=== PATIENT | female | born 1975 | race African-American/Black ===

== ENCOUNTER 2018-05-24 10:48 | Inpatient (IN) | payer BC ==
[~2018-05-24] VITALS: Ht 177.8 cm; Wt 72.6 kg
[2018-05-24 11:06] VITALS: BP 134/76
--- NOTE | 2018-05-24 11:07 | NUR ---
ED Nurse Note: Pt BIBA from home due to R sided abdominal pain radiating to back pain since Fibroid Embolization Procedure yesterday by Dr. Pedraza, also c/o n/v not relieved by Zofran. Emesis was saliva and fluid. Pain 7/10 yfn. Last bowel movement was Tuesday05/22/18. AOx4, Vss yfn. Will cont to monitor. Blood and urine collected and sent to lab.
[2018-05-24 11:15] LABS: APPEARANCE,URINE CLEAR; BASOPHILS % (AUTO) 0.8 % (0.0-2.0); BILIRUBIN, URINE NEGATIVE (NEGATIVE); GLUCOSE, URINE (UA) NEGATIVE (NEGATIVE); HEMATOCRIT 42.7 % (37.0-47.0); HEMOGLOBIN 14.4 G/DL (12.0-16.0); KETONES,URINE 3+ (NEGATIVE); LEUKOCYTE ESTERASE ,URINE 1+ (NEGATIVE); LYMPHOCYTES % (AUTO) 17.5 % (20.0-45.0); MEAN CORPUSCULAR VOLUME 95 FL (80-99); MONOCYTES % (AUTO) 4.5 % (1.0-10.0); NEUTROPHILS % (AUTO) 77.1 % (45.0-75.0); NITRITE,URINE NEGATIVE (NEGATIVE); PH,URINE 6.5 (4.5-8.0); PLATELET COUNT 311 K/UL (150-450); PROTEIN,URINE 1+ (NEGATIVE); RED BLOOD COUNT 4.49 M/UL (4.20-5.40); RED CELL DISTRIBUTION WIDTH 11.1 % (11.6-14.8); UROBILINOGEN,URINE NORMAL MG/DL (0.0-1.0); WHITE BLOOD COUNT 8.5 K/UL (4.8-10.8)
[2018-05-24] MEDS ORDERED: Isovue-300 100ml vial INJ PRN (11:15)
[2018-05-24 11:18] LABS: COLOR,URINE YELLOW
--- NOTE | 2018-05-24 11:21 | NUR ---
ED Nurse Note: Blood and urine collected and sent to lab
[2018-05-24 11:24] LABS: ANION GAP 10 mmol/L (5-15); BLOOD UREA NITROGEN 7 mg/dL (7-18); CARBON DIOXIDE 25 MMOL/L (21-32); CHLORIDE 99 MMOL/L (98-107); POTASSIUM 3.7 MMOL/L (3.5-5.1); SODIUM 134 MMOL/L (136-145)
--- NOTE | 2018-05-24 11:24 | Emergency Room Report ---
History of Present Illness General Chief Complaint: Abdominal Pain Source: Patient Present Illness HPI 43yo F c/o diffuse constant crampy nonradiating abd pain s/p UAE procedure with Dr. Godfrey Pedraza yesterday, pain became worse when she was climbing stairs yesterday but denies feeling any sutures pop, denies diarrhea, constipation, vomiting, vaginal bleeding. She Reports nausea, but no shortness of breath, no chest pain, no fever, does report mild back pain as well, denies any urinary retention, but does report constipation, and has been trying Percocet without much relief. Allergies: Coded Allergies: No Known Allergies (Unverified , 05/24/18) Patient History Past Medical History: see triage record Last Menstrual Period: last month Now: No Reviewed Nursing Documentation: PMH: Agreed; PSxH: Agreed Nursing Documentation-PMH Past Medical History: No History, Except For Hx Asthma: Yes Review of Systems All Other Systems: negative except mentioned in HPI Physical Exam Vital Signs Date Time Temp Pulse Resp B/P (MAP) Pulse Ox O2 Delivery O2 Flow Rate FiO2 05/24/18 10:42 99.1 64 18 126/84 99 Room Air Sp02 EP Interpretation: reviewed, normal General Appearance: no apparent distress, alert, non-toxic Head: normocephalic Eyes: bilateral eye normal inspection, bilateral eye PERRL, bilateral eye EOMI ENT: normal ENT inspection, hearing grossly normal, normal pharynx, no angioedema, normal voice, moist mucus membranes Neck: normal inspection, full range of motion, supple, supple/symm/no masses Respiratory: chest non-tender, lungs clear, normal breath sounds, chest symmetrical, palpation of chest normal Cardiovascular #1: normal peripheral pulses, regular rate, rhythm Cardiovascular #2: 2+ radial (R), 2+ radial (L), 2+ dorsalis pedis (R), 2+ dorsalis pedis (L) Gastrointestinal: normal inspection, non tender - mild diffuse subjective pain but no focal tenderness, soft, no mass, no guarding, no rebound Rectal: deferred Genitourinary: normal inspection, no CVA tenderness Musculoskeletal: back normal, gait/station normal, normal range of motion, non- tender, no calf tenderness, Sergio's Sign negative Neurologic: alert, responsive, computer operations specialist III-XII nml as tested, motor strength/tone normal, sensory intact, speech normal Psychiatric: judgement/insight normal, memory normal, mood/affect normal, anxious Skin: normal color, no rash, warm/dry, normal turgor, other - R inguinal sutures C/D/I no overlying erythema/warmth/tenderness/bleeding/purulence/ fluctuance Lymphatic: no adenopathy Medical Decision Making Diagnostic Impression: Primary Impression: Postoperative abdominal pain ER Course Patient is postop day 1 status post uterine artery embolization for fibroids, will be admitted to Dr. Godfrey Pedraza, stable for MedSurg, given IV fluids, analgesics, antiemetics here. Labs, CT, UA, unremarkable, will admit to Dr. Pedraza. EKG Diagnostic Results EKG Time: 10:53 EP Interpretation: no stemi, no [id number] Rate: normal ST Segments: no acute changes ASA given to the pt in ED: No Rhythm Strip Diag. Results Rhythm Strip Time: 11:22 EP Interpretation: yes Rate: 67 Rhythm: NSR, no PVC's, no ectopy CT/MRI/US Diagnostic Results CT/MRI/US Diagnostic Results : Imaging Test Ordered: ct angio chest/abd/pelvis Last Vital Signs Date Time Temp Pulse Resp B/P (MAP) Pulse Ox O2 Delivery O2 Flow Rate FiO2 05/24/18 11:06 99.1 70 18 134/76 100 Room Air Disposition: ADMITTED INPATIENT Condition: Stable Referrals: NON PHYSICIAN (PCP) DIYA MOREAU M.D May 24, 2018 11:23
[2018-05-24 11:28] VITALS: BP 122/67
[2018-05-24 11:32] LABS: ALANINE AMINOTRANSFERASE 19 U/L (12-78); ALBUMIN 3.8 G/DL (3.4-5.0); ALBUMIN/GLOBULIN RATIO 0.8 (1.0-2.7); ALKALINE PHOSPHATASE 47 U/L (46-116); ASPARTATE AMINO TRANSFERASE 14 U/L (15-37); BILIRUBIN,TOTAL 0.6 MG/DL (0.2-1.0)
[2018-05-24] MEDS ORDERED: Morphine Sulfate 4mg/ml Inj (IV USE ONLY) IVP ONE (11:45)
--- NOTE | 2018-05-24 11:47 | NUR ---
ED Nurse Note: let ralph rn know about hcg result
--- NOTE | 2018-05-24 12:35 | Diagnostic Imaging Report ---
Indication: Chest and abdominal pain. Status post UAE procedure Technique: Continuous helical transaxial imaging of the chest, abdomen and pelvis was obtained from the lung bases to the pubic symphysis during intravenous contrast administration. Multiple phases of enhancement obtained. Coronal 2-D reformats were also obtained. Study obtained in a Siemens sensation [address] Automatic Exposure Control was utilized. Total Dose length Product (DLP): 1256.[address] Dose Index Volume (CTDIvol): 11.18,14.25 mGy Comparison: None Findings: CT CHEST: The lungs are clear. Heart and mediastinum appear unremarkable. No pleural or pericardial fluid identified. No infiltrate seen. CT abdomen pelvis: Signs of a recent uterine fibroid embolization are demonstrated. There are 2 large areas noted. In the anterior part of the uterine fundus there is a 6 cm focus with heterogeneous contrast enhancement and curvilinear areas of air. 5 cm posterior uterine fibroid with similar findings. There is no free air. There is no evidence of intra-abdominal pelvic abscess. The appendix is retrocecal and appears normal. No evidence of bowel dilatation to suggest bowel obstruction. The kidneys enhance normally. There is no hydronephrosis. There is vicarious excretion of contrast noted within the gallbladder. Solid organs including the liver, spleen, pancreas, adrenal glands appear normal. Some air noted in the urinary bladder presumably from recent Reeder placement. IMPRESSION: Stigmata of recent uterine fibroid embolization as described above. No evidence of abscess or perforation. Some air in the urinary bladder presumably from recent Reeder placement. Negative evaluation of the chest The CT scanner at [facility] is accredited by the [employer] and the scans are performed using dose optimization techniques as appropriate to a performed exam including Automatic Exposure control.
[2018-05-24 14:03] VITALS: BP 133/80
--- NOTE | 2018-05-24 15:24 | NUR ---
ED Nurse Note: pt is admitted to the hospital report given to afua lehman.
[2018-05-24] MEDS ORDERED: OXYCODONE-ACET1 EAC3 ORAL (15:30)
[2018-05-24] MEDS ORDERED: TRAMADOL HCL50 MG ORAL (15:30)
[2018-05-24] MEDS ORDERED: AMOX TR-K CLV1 EAC2 ORAL (15:30)
[2018-05-24] MEDS ORDERED: IBUPROFEN600 MG ORAL (15:30)
[2018-05-24] MEDS ORDERED: ZOFRAN4 M3 ORAL (15:30)
[2018-05-24 16:00] VITALS: BP 135/87
[2018-05-24] MEDS ORDERED: HYDROmorphone 1mg/ml Carpuject IVP PRN (16:00)
--- NOTE | 2018-05-24 16:30 | NUR ---
NURSE NOTES: Received patient From ER stable condition, reporting pain 5/10. reported NKA, Call light with in reach bed at low position locked, mother at bedside will continue to monitor.
--- NOTE | 2018-05-24 17:27 | Consultation ---
Consult Note Assessment/Plan dictated Mike Astorga MD May 24, 2018 17:27
[2018-05-24] MEDS ORDERED: Hydromorphone 0.5mg/0.5ml inj IVP PRN (17:30)
[2018-05-24] MEDS ORDERED: Albuterol ud Inhalation HHN PRN (17:30)
[2018-05-24] MEDS ORDERED: Potassium Chloride 20 MEQ in Dextrose 5%/Lactated Ringer's 1,000 ML IV SCH (18:00)
--- NOTE | 2018-05-24 18:00 | NUR ---
NURSE NOTES: Patient had clear liquid diet and able to eat and tolerated no nausea/vomiting reported. Patient also stated she takes control pills but she doesn't remember the name of the medication so her mother will send the information when she go home tonight will endorse to package crimper nurse. SCD on IV running. Pain managed well with one time dose 1mg dilaudid. will continue to monitor. no bleeding noted or reported.
[2018-05-24] MEDS: Potassium Chloride 20 MEQ in Dextrose 5%/Lactated Ringer's 1,000 ML IV SCH (18:45)
--- NOTE | 2018-05-24 19:29 | NUR ---
HAND-OFF: Report given to Bunny Stark RN patient stable condition.
[2018-05-24 20:00] VITALS: BP 114/82
[2018-05-24] MEDS: ceFAZolin sod 1 GM in D5W 55 ML IVPB SCH (22:16)
--- NOTE | 2018-05-24 23:00 | Consultation ---
DATE OF CONSULTATION: 05/24/2018 INTERNAL MEDICINE CONSULTATION HISTORY OF PRESENT ILLNESS: The patient is a 43-year-old female who had problems with fibroid uterus and underwent uterine artery embolization yesterday. Since that time, she has had severe pain, nausea, and vomiting. She was admitted for control of her symptoms. She states that she is feeling better now that she had some intravenous narcotics. PAST MEDICAL HISTORY: The patient had sinus surgery many years ago and has mild asthma, which is not active at the present time. She has no other major health problems. MEDICATIONS: At home, she was taking Augmentin, ibuprofen, Zofran, Percocet, and tramadol. She is on control pills. ALLERGIES: None. SOCIAL HISTORY: She does not smoke. She drinks socially. She does not use drugs. REVIEW OF SYSTEMS: Otherwise unremarkable. She has not had a bowel movement since her procedure yesterday. PHYSICAL EXAMINATION: GENERAL: The patient is alert and responds appropriately. VITAL SIGNS: Stable. Temperature is 99.1, heart rate is 78, and saturation are normal. SKIN: Warm and dry. HEENT: The head is normocephalic. NECK: No jugular venous distention. CHEST: Clear. CARDIAC: Rhythm is regular. ABDOMEN: Soft and nontender. No masses felt. Liver and spleen are not enlarged. EXTREMITIES: No clubbing, cyanosis, or edema. LABORATORY AND DIAGNOSTIC DATA: The electrolytes are normal except for sodium 134. Protein is slightly high at 8.6. Lipase is low. HCG is negative. Urinalysis shows few red cells, ketones, and blood on dipstick. The white count and hemoglobin are normal. Platelets are normal. IMPRESSION: 1. Leiomyoma of the uterus. 2. Status post uterine artery embolization. 3. Postprocedure severe pain and vomiting. 4. Mild asthma. PLAN: The patient will be given appropriate pain medication, intravenous fluids, and antiemetics. Early discharge is anticipated. Don Astorga M.D. DR: ROHIT JOB#: [id number] CC: Godfrey Pedraza M.D.; Fax#: [phone] DON ASTORGA M.D. ; FAX#: [phone]
--- NOTE | 2018-05-24 23:58 | NUR ---
NURSE NOTES: Patient in bed awake and oriented. VSS. No SOB noted. IV site intact and able to tolerate IV fluids. 7/10 Lower abdominal pain noted. PRN pain medication given. No signs of distress noted at this time. Needs attended. Due meds given. Call light within reach. In stable condition.
[2018-05-25] VITALS (7 sets, daily range): BP systolic 112–138; BP diastolic 69–84
[2018-05-25] MEDS: HYDROcodone/Acetamin 10/325 tab ORAL PRN ×5 (01:00→19:47)
[2018-05-25] MEDS: Potassium Chloride 20 MEQ in Dextrose 5%/Lactated Ringer's 1,000 ML IV SCH ×4 (01:38→20:28)
[2018-05-25] MEDS: ceFAZolin sod 1 GM in D5W 55 ML IVPB SCH ×2 (06:01→14:52)
--- NOTE | 2018-05-25 06:25 | General Surgery Progress Note ---
General Surgery-Progress Note Subjective Day of Surgery: 05 23 18 Reason for Consult uncontrolled pain, nausea Procedure Performed uterine artery embolization Symptoms: improved, tolerating diet, voiding well Objective Last 24 Hour Vital Signs Date Time Temp Pulse Resp B/P (MAP) Pulse Ox O2 Delivery O2 Flow Rate FiO2 05/25/18 04:00 98.3 70 18 124/79 (94) 97 05/25/18 00:00 98.2 66 18 114/82 (93) 99 05/24/18 21:00 Room Air 05/24/18 20:45 62 18 Room Air 05/24/18 20:00 98.4 69 18 114/82 (93) 99 05/24/18 17:06 99.1 05/24/18 16:00 97.9 63 18 135/87 (103) 98 05/24/18 16:00 Room Air 05/24/18 15:30 99.1 78 20 133/80 99 Room Air 05/24/18 14:03 78 20 133/80 99 Room Air 05/24/18 12:17 99.1 05/24/18 11:28 64 12 122/67 100 Room Air 05/24/18 11:06 99.1 70 18 134/76 100 Room Air 05/24/18 10:57 64 18 Room Air 05/24/18 10:42 99.1 64 18 126/84 99 Room Air I&O Intake and Output 05/24/18 05/25/18 19:00 07:00 Intake Total 1100 ml 1850 ml Balance 1100 ml 1850 ml Intake Oral 500 ml IV Total 1100 ml 1350 ml # Voids 1 4 Dressing: dry Wound: clean, dry Drains: none Cardiovascular: RSR Respiratory: clear Abdomen: soft, flat, scaphoid, tenderness, present bowel sounds Extremities: no edema, no tenderness, no cyanosis Laboratory Tests Test 05/24/18 10:55 White Blood Count 8.5 K/UL (4.8-10.8) Red Blood Count 4.49 M/UL (4.20-5.40) Hemoglobin 14.4 G/DL (12.0-16.0) Hematocrit 42.7 % (37.0-47.0) Mean Corpuscular Volume 95 FL (80-99) Mean Corpuscular Hemoglobin 32.1 PG (27.0-31.0) H Mean Corpuscular Hemoglobin Concent 33.8 G/DL (32.0-36.0) Red Cell Distribution Width 11.1 % (11.6-14.8) L Platelet Count 311 K/UL (150-450) Mean Platelet Volume 6.0 FL (6.5-10.1) L Neutrophils (%) (Auto) 77.1 % (45.0-75.0) H Lymphocytes (%) (Auto) 17.5 % (20.0-45.0) L Monocytes (%) (Auto) 4.5 % (1.0-10.0) Eosinophils (%) (Auto) 0.0 % (0.0-3.0) Basophils (%) (Auto) 0.8 % (0.0-2.0) Urine Color Yellow Urine Appearance Clear Urine pH 6.5 (4.5-8.0) Urine Specific [place] 1.015 (1.005-1.035) Urine Protein 1+ (NEGATIVE) H Urine Glucose (UA) Negative (NEGATIVE) Urine Ketones 3+ (NEGATIVE) H Urine Blood 4+ (NEGATIVE) H Urine Nitrite Negative (NEGATIVE) Urine Bilirubin Negative (NEGATIVE) Urine Urobilinogen Normal MG/DL (0.0-1.0) Urine Leukocyte Esterase 1+ (NEGATIVE) H Urine RBC 5-10 /HPF (0 - 2) H Urine WBC 2-4 /HPF (0 - 2) Urine Squamous Epithelial Cells Few /LPF (NONE/OCC) Urine Bacteria Occasional /HPF (NONE) Urine Mucus Occasional /LPF Sodium Level 134 MMOL/L (136-145) L Potassium Level 3.7 MMOL/L (3.5-5.1) Chloride Level 99 MMOL/L (98-107) Carbon Dioxide Level 25 MMOL/L (21-32) Anion Gap 10 mmol/L (5-15) Blood Urea Nitrogen 7 mg/dL (7-18) Creatinine 1.0 MG/DL (0.55-1.30) Estimat Glomerular Filtration Rate > 60 mL/min (>60) Glucose Level 96 MG/DL (74-106) Calcium Level 9.0 MG/DL (8.5-10.1) Total Bilirubin 0.6 MG/DL (0.2-1.0) Aspartate Amino Transf (AST/SGOT) 14 U/L (15-37) L Alanine Aminotransferase (ALT/SGPT) 19 U/L (12-78) Alkaline Phosphatase 47 U/L (46-116) Troponin I 0.007 ng/mL (0.000-0.056) Total Protein 8.6 G/DL (6.4-8.2) H Albumin 3.8 G/DL (3.4-5.0) Globulin 4.8 g/dL Albumin/Globulin Ratio 0.8 (1.0-2.7) L Lipase 55 U/L (73-393) L Human Chorionic Gonadotropin, Quant < 1 mIU/mL (1-6) L Imaging CT scan of abdomen and pelvis grossly normal Plan Additional Comments iv pain control, anti nausea. may advance diet when passing flatus. goal, control with oral analgesics. Godfrey Pedraza MD May 25, 2018 06:24
--- NOTE | 2018-05-25 06:31 | NUR ---
NURSE NOTES: Patients bowel sounds present but has no BM yet and has not passed gas. Will continue to monitor. Patient has no n&v.
[2018-05-25 07:09] LABS: ALANINE AMINOTRANSFERASE 16 U/L (12-78); ALBUMIN 3.2 G/DL (3.4-5.0); ALBUMIN/GLOBULIN RATIO 0.8 (1.0-2.7); ALKALINE PHOSPHATASE 42 U/L (46-116); ANION GAP 9 mmol/L (5-15); ASPARTATE AMINO TRANSFERASE 8 U/L (15-37); BILIRUBIN,TOTAL 0.5 MG/DL (0.2-1.0); BLOOD UREA NITROGEN 5 mg/dL (7-18); CALCIUM 8.4 MG/DL (8.5-10.1); CARBON DIOXIDE 26 MMOL/L (21-32); CHLORIDE 103 MMOL/L (98-107); CREATININE 0.9 MG/DL (0.55-1.30); POTASSIUM 3.9 MMOL/L (3.5-5.1); SODIUM 138 MMOL/L (136-145)
[2018-05-25 07:31] LABS: BASOPHILS % (AUTO) 0.6 % (0.0-2.0); EOSINOPHILS % (AUTO) 0.2 % (0.0-3.0); HEMATOCRIT 38.5 % (37.0-47.0); LYMPHOCYTES % (AUTO) 18.8 % (20.0-45.0); MEAN CORPUSCULAR VOLUME 95 FL (80-99); MONOCYTES % (AUTO) 4.5 % (1.0-10.0); NEUTROPHILS % (AUTO) 75.9 % (45.0-75.0); PLATELET COUNT 283 K/UL (150-450); RED BLOOD COUNT 4.04 M/UL (4.20-5.40); RED CELL DISTRIBUTION WIDTH 11.2 % (11.6-14.8); WHITE BLOOD COUNT 8.2 K/UL (4.8-10.8)
--- NOTE | 2018-05-25 07:38 | NUR ---
NURSE NOTES: Patient is alert and oriented,IV fluids infusing as ordered,patient state she is feeling a little better,patient on clear liquids for breakfast.Not passing gas as of yet.No complaint of nausea.Call light within reach.
--- NOTE | 2018-05-25 12:12 | NUR ---
CASE MANAGEMENT:REVIEW 43 YR OLD FEMALE BIBA FROM HOME CC: ABDOMINAL PAIN WITH NAUSEA AND VOMITING PMH: S/P FIBROID EMBOLIZATION SI: POST OP ABDOMINAL PAIN 99.1 64 18 126/84 99% ON RA NA-134 IS:IV MORPHINE X1 IV ZOFRAN X1 IV KCL X1 1L NS BOLUS CT CHEST AND ABDOMEN : TO MED/SURG 3 EAST IS: NORCO PO Q4HRS IV DILAUDID Q3HRS PRN IV ANCEF Q8HRS IVF+KCL@150/HR
--- NOTE | 2018-05-25 14:32 | NUR ---
*-* INSURANCE *-* ALL CLINICALS AND REVIEWS HAVE BEEN FAXED TO: [employer] [facility] PLEASE FAX THE REVIEW/CLINICAL FX: [phone]
--- NOTE | 2018-05-25 14:53 | General Progress Note ---
Assessment/Plan Assessment/Plan 1. Leiomyoma of the uterus. 2. Status post uterine artery embolization. 3. Postprocedure severe pain and vomiting. 4. Mild asthma. ambulating less pain waiting for BM advance diet after above disc w RN, Dr Pedraza Subjective Constitutional: Denies: fever Gastrointestinal/Abdominal: Reports: abdominal pain Allergies: Coded Allergies: No Known Allergies (Unverified , 05/24/18) Objective Last 24 Hour Vital Signs Date Time Temp Pulse Resp B/P (MAP) Pulse Ox O2 Delivery O2 Flow Rate FiO2 05/25/18 11:59 98.3 85 18 112/79 (90) 85 05/25/18 11:48 97.9 72 18 131/69 (89) 96 72 05/25/18 09:00 Room Air 05/25/18 08:10 98.9 68 18 121/72 (88) 98 05/25/18 07:34 67 18 Room Air 21 05/25/18 04:00 98.3 70 18 124/79 (94) 97 05/25/18 00:00 98.2 66 18 114/82 (93) 99 05/24/18 21:00 Room Air 05/24/18 20:45 62 18 Room Air 05/24/18 20:00 98.4 69 18 114/82 (93) 99 05/24/18 17:06 99.1 05/24/18 16:00 97.9 63 18 135/87 (103) 98 05/24/18 16:00 Room Air 05/24/18 15:30 99.1 78 20 133/80 99 Room Air Intake and Output 05/24/18 05/25/18 19:00 07:00 Intake Total 1100 ml 2150 ml Balance 1100 ml 2150 ml Intake Oral 500 ml IV Total 1100 ml 1650 ml # Voids 1 4 Laboratory Tests 05/25/18 05:50: White Blood Count 8.2, Red Blood Count 4.04L, Hemoglobin 13.0, Hematocrit 38.5, Mean Corpuscular Volume 95, Mean Corpuscular Hemoglobin 32.3H, Mean Corpuscular Hemoglobin Concent 33.9, Red Cell Distribution Width 11.2L, Platelet Count 283, Mean Platelet Volume 5.7L, Neutrophils (%) (Auto) 75.9H, Lymphocytes (%) (Auto) 18.8L, Monocytes (%) (Auto) 4.5, Eosinophils (%) (Auto) 0.2, Basophils (%) (Auto ) 0.6, Sodium Level 138, Potassium Level 3.9, Chloride Level 103, Carbon Dioxide Level 26, Anion Gap 9, Blood Urea Nitrogen 5L, Creatinine 0.9, Estimat Glomerular Filtration Rate > 60, Glucose Level 135H, Calcium Level 8.4L, Total Bilirubin 0.5, Aspartate Amino Transf (AST/SGOT) 8L, Alanine Aminotransferase ( ALT/SGPT) 16, Alkaline Phosphatase 42L, Total Protein 7.4, Albumin 3.2L, Globulin 4.2, Albumin/Globulin Ratio 0.8L Height (Feet): 5 Height (Inches): 10.00 Weight (Pounds): 160 General Appearance: no apparent distress Neck: normal alignment Cardiovascular: normal rate Respiratory/Chest: lungs clear Abdomen: non tender Mike Astorga MD May 25, 2018 14:53
--- NOTE | 2018-05-25 18:47 | NUR ---
NURSE NOTES: Patient sitting up in chair,patient tolerating clear liquids,but have not passed gas .patient ambulated in [place],continue to encourage patient to ambulate.IV in the right arm leaking,patient will need iv restart,patient wants to ambulate before restart IV.
--- NOTE | 2018-05-25 19:45 | NUR ---
NURSE NOTES: Pt lying in bed w/bed in lowest position and call light within reach. Pt A&Ox4, VSS, and in no apparent distress at this time. IV site leaking but patent; hypoactive bowel sounds auscultated but pt denies having passed gas; and steri-strips/bandAid in rt groin C/D/I. Will continue to monitor.
--- NOTE | 2018-05-25 19:48 | NUR ---
HAND-OFF: Report given to Eleanor HARRISON.
--- NOTE | 2018-05-25 21:45 | NUR ---
NURSE NOTES: Pt refusing new IV; MD notified and D/C'd IVF and IV abx. Will continue to monitor.
[2018-05-26] VITALS: BP 125/93
[2018-05-26 04:00] VITALS: BP 136/78
[2018-05-26 07:11] LABS: BASOPHILS % (AUTO) 0.5 % (0.0-2.0); EOSINOPHILS % (AUTO) 0.3 % (0.0-3.0); HEMATOCRIT 37.3 % (37.0-47.0); HEMOGLOBIN 12.7 G/DL (12.0-16.0); LYMPHOCYTES % (AUTO) 12.1 % (20.0-45.0); MEAN CORPUSCULAR VOLUME 95 FL (80-99); MONOCYTES % (AUTO) 4.4 % (1.0-10.0); NEUTROPHILS % (AUTO) 82.6 % (45.0-75.0); PLATELET COUNT 262 K/UL (150-450); RED BLOOD COUNT 3.93 M/UL (4.20-5.40); RED CELL DISTRIBUTION WIDTH 11.1 % (11.6-14.8); WHITE BLOOD COUNT 9.4 K/UL (4.8-10.8)
--- NOTE | 2018-05-26 07:20 | NUR ---
HAND-OFF: Report given to CHRISTY Carcamo.
[2018-05-26 07:36] LABS: ALANINE AMINOTRANSFERASE 15 U/L (12-78); ALBUMIN 3.1 G/DL (3.4-5.0); ALBUMIN/GLOBULIN RATIO 0.7 (1.0-2.7); ALKALINE PHOSPHATASE 43 U/L (46-116); ANION GAP 8 mmol/L (5-15); ASPARTATE AMINO TRANSFERASE 9 U/L (15-37); BILIRUBIN,TOTAL 0.7 MG/DL (0.2-1.0); BLOOD UREA NITROGEN 5 mg/dL (7-18); CALCIUM 8.5 MG/DL (8.5-10.1); CARBON DIOXIDE 26 MMOL/L (21-32); CHLORIDE 102 MMOL/L (98-107); CREATININE 0.8 MG/DL (0.55-1.30); POTASSIUM 3.7 MMOL/L (3.5-5.1); SODIUM 136 MMOL/L (136-145)
[2018-05-26 08:00] VITALS: BP 131/73
[2018-05-26] MEDS ORDERED: Bisacodyl EC 5mg tab ORAL SCH ×2 (08:30→18:00)
[2018-05-26] MEDS: HYDROcodone/Acetamin 10/325 tab ORAL PRN (08:31)
--- NOTE | 2018-05-26 10:34 | NUR ---
NURSE NOTES: Spoke to regarding shower and new order received. Order read back and carried out.
[2018-05-26 12:00] VITALS: BP 125/73
[2018-05-26] MEDS ORDERED: Simethicone 80mg tab ORAL PRN (12:45)
[2018-05-26] MEDS ORDERED: Sennosides 8.6mg tab ORAL SCH (12:45)
[2018-05-26] MEDS ORDERED: Simethicone 80mg tab ORAL SCH (12:45)
[2018-05-26] MEDS ORDERED: Sennosides 8.6mg tab ORAL PRN (12:45)
[2018-05-26] MEDS ORDERED: Fleet's Enema 133ml RECTAL PRN (12:45)
--- NOTE | 2018-05-26 12:50 | GI Initial Consult Note ---
History of Present Illness General Date patient seen: May 26, 2018 Time patient seen: 12:44 Reason for Hospitalization: Abdominal Pain Referring physician: ARCADIO Reason for Consultation: ABDOMINAL PAIN Present Illness HPI 43yo F c/o diffuse constant crampy nonradiating abd pain s/p UAE procedure with Dr. Godfrey Pedraza yesterday, pain became worse when she was climbing stairs yesterday but denies feeling any sutures pop, denies diarrhea, constipation, vomiting, vaginal bleeding. She Reports nausea, but no shortness of breath, no chest pain, no fever, does report mild back pain as well, denies any urinary retention, but does report constipation, and has been trying Percocet without much relief. GI consulted for abdominal pain. Patient seen, awake alert and oriented x4 no apparent distress. Patient has complaint of no bowel movement for approximately 4-5 days. The patient stated that she has been taking a large amount of narcotics to help relieve her pain from the embolization. She denies passing any flatulence. Abdomen assessed, soft non-distended nontender. No active signs and symptoms of nausea vomiting. Denies any diarrhea. Ambulating around the unit with assistance. Patient is previously taken Dulcolax 10 mg with no relief. Patient has no history of endoscopic colonoscopy. Home Meds Reported Medications Amoxicillin/Potassium Clav 875-125 Mg Tab* (AMOX TR-K CLV 875-125 MG TAB*) 1 Each Tablet, 1 TAB ORAL EVERY 12 HOURS, TAB 05/24/18 Oxycodone Hcl/Acetaminophen 5-325* (OXYCODONE-ACETAMINOPHEN 5-325*) 1 Each Tablet, 1 TAB ORAL Q4H PRN for For Pain, TAB 0 Refills 05/24/18 Ondansetron* (ZOFRAN*) 4 Mg Tablet, 4 MG ORAL Q6H PRN for Nausea & Vomiting, TAB 05/24/18 Ibuprofen* (MOTRIN*) 600 Mg Tablet, 800 MG ORAL Q6H PRN for For Pain, #30 TAB 05/24/18 Tramadol Hcl* (ULTRAM*) 50 Mg Tablet, 50 MG ORAL Q6H PRN for For Pain, #30 TAB 0 Refills 05/24/18 Med list reviewed/reconciled: Yes Allergies: Coded Allergies: No Known Allergies (Unverified , 05/24/18) Patient History History Provided By: Medical Record PMH Narrative Past Medical History: see triage record Last Menstrual Period: last month Now: No Reviewed Nursing Documentation: PMH: Agreed; PSxH: Agreed Nursing Documentation-PMH Past Medical History: No History, Except For Hx Asthma: Yes Past Surgical History: other - See HPI Social History: Denies: smoking, alcohol use, drug use, other Review of Systems All Other Systems: negative except mentioned in HPI Physical Exam Vital Signs Date Time Temp Pulse Resp B/P (MAP) Pulse Ox O2 Delivery O2 Flow Rate FiO2 05/24/18 10:42 99.1 64 18 126/84 99 Room Air 05/25/18 07:34 21 Sp02 EP Interpretation: reviewed, normal Labs Laboratory Tests Test 05/26/18 05:45 White Blood Count 9.4 K/UL (4.8-10.8) Red Blood Count 3.93 M/UL (4.20-5.40) L Hemoglobin 12.7 G/DL (12.0-16.0) Hematocrit 37.3 % (37.0-47.0) Mean Corpuscular Volume 95 FL (80-99) Mean Corpuscular Hemoglobin 32.3 PG (27.0-31.0) H Mean Corpuscular Hemoglobin Concent 34.1 G/DL (32.0-36.0) Red Cell Distribution Width 11.1 % (11.6-14.8) L Platelet Count 262 K/UL (150-450) Mean Platelet Volume 5.9 FL (6.5-10.1) L Neutrophils (%) (Auto) 82.6 % (45.0-75.0) H Lymphocytes (%) (Auto) 12.1 % (20.0-45.0) L Monocytes (%) (Auto) 4.4 % (1.0-10.0) Eosinophils (%) (Auto) 0.3 % (0.0-3.0) Basophils (%) (Auto) 0.5 % (0.0-2.0) Sodium Level 136 MMOL/L (136-145) Potassium Level 3.7 MMOL/L (3.5-5.1) Chloride Level 102 MMOL/L (98-107) Carbon Dioxide Level 26 MMOL/L (21-32) Anion Gap 8 mmol/L (5-15) Blood Urea Nitrogen 5 mg/dL (7-18) L Creatinine 0.8 MG/DL (0.55-1.30) Estimat Glomerular Filtration Rate > 60 mL/min (>60) Glucose Level 97 MG/DL (74-106) Calcium Level 8.5 MG/DL (8.5-10.1) Total Bilirubin 0.7 MG/DL (0.2-1.0) Aspartate Amino Transf (AST/SGOT) 9 U/L (15-37) L Alanine Aminotransferase (ALT/SGPT) 15 U/L (12-78) Alkaline Phosphatase 43 U/L (46-116) L Total Protein 7.5 G/DL (6.4-8.2) Albumin 3.1 G/DL (3.4-5.0) L Globulin 4.4 g/dL Albumin/Globulin Ratio 0.7 (1.0-2.7) L General Appearance: well appearing, no apparent distress, alert Head: normocephalic EENT: PERRL/EOMI, normal ENT inspection Neck: supple Respiratory: normal breath sounds, no respiratory distress Cardiovascular: normal rate Gastrointestinal: normal inspection, non tender, soft, normal bowel sounds, non -distended Rectal: deferred Genitourinary: no CVA tenderness Musculoskeletal: normal inspection, back normal Neurologic: normal inspection, alert, oriented x3, responsive Psychiatric: normal inspection, judgement/insight normal, memory normal Skin: normal inspection, normal color, no rash, warm/dry, palpation normal, well hydrated Lymphatic: normal inspection, no adenopathy Current Medications Current Medications Medications (Trade) Dose Ordered Sig/Ariela Route PRN Reason Start Time Stop Time Status Last Admin Dose Admin Acetaminophen/ Hydrocodone Bitart (Rawlings 10/325) 1 tab Q4H PRN ORAL MILD PAIN 05/24/18 17:30 05/31/18 17:29 05/26/18 08:31 Albuterol Sulfate (Proventil) 2.5 mg QIDPRN PRN HHN bronchospasm 05/24/18 17:30 05/29/18 17:29 Bisacodyl (Dulcolax) 5 mg BID ORAL 05/26/18 18:00 06/25/18 17:59 Diphenhydramine HCl (Benadryl) 25 mg Q4H PRN ORAL Itching 05/24/18 16:00 06/23/18 15:59 Hydromorphone HCl (Dilaudid) 0.5 mg Q3H PRN IVP Moderate Pain (Pain Scale 4-6) 05/24/18 17:30 05/31/18 17:29 05/24/18 22:00 Hydromorphone HCl (Dilaudid) 1 mg Q3H PRN IVP Severe Pain (Pain Scale 7-10) 05/24/18 18:00 05/31/18 17:59 Ondansetron HCl (Zofran) 4 mg Q6H PRN IVP Nausea & Vomiting 05/24/18 16:00 06/23/18 15:59 GI: Plan Problems: (1) Therapeutic opioid-induced constipation (OIC) (2) Postoperative abdominal pain Plan Avoid narcotic use, Tylenol as needed for pain Senokot x1 Simethicone x1 Relistor subcutaneous x1 OIC Advance diet as tolerated Encourage ambulation Rx for Movantik as outpatient will follow with additional recs if patient does not have BM today Discussed with Dr. Silverman. Thank you for this patient referral, we will follow. The patient was seen and examined at bedside and all new and available data was reviewed in the patients chart. I agree with the above findings, impression and plan. (Patient seen earlier today. Signature stamp does not reflect patient encounter time.). - MD Fatemeh Chacon,[facility] SHAUN May 26, 2018 12:50
--- NOTE | 2018-05-26 12:52 | NUR ---
CASE MANAGEMENT:REVIEW 05/26/18 SI: POSTPROCEDURE SEVERE PAIN. VOMITING 99.0 75 18 136/78 100% ON RA IS: DULCOLAX PO BID IV DILAUDID Q3HRS : MED/SURG STATUS 3 EAST
--- NOTE | 2018-05-26 14:01 | General Progress Note ---
Assessment/Plan Assessment/Plan 1. Leiomyoma of the uterus. 2. Status post uterine artery embolization. 3. Postprocedure severe pain and vomiting. 4. Mild asthma. ambulating more pain passing gas disc w RN, Dr Pedraza Subjective Gastrointestinal/Abdominal: Reports: abdominal pain Allergies: Coded Allergies: No Known Allergies (Unverified , 05/24/18) Objective Last 24 Hour Vital Signs Date Time Temp Pulse Resp B/P (MAP) Pulse Ox O2 Delivery O2 Flow Rate FiO2 05/26/18 08:12 74 18 Room Air 21 05/26/18 08:12 98 Room Air 21 05/26/18 08:12 Room Air 21 05/26/18 04:00 99.0 75 18 136/78 (97) 100 05/26/18 00:00 99.2 68 18 125/93 (104) 98 05/25/18 22:05 71 18 Room Air 21 05/25/18 22:05 Room Air 21 05/25/18 22:05 97 Room Air 21 05/25/18 21:00 Room Air 05/25/18 20:00 99.4 71 18 131/73 (92) 97 05/25/18 16:00 99.4 69 17 138/84 (102) 99 69 Intake and Output 05/25/18 05/26/18 18:59 06:59 Intake Total 1915 ml Balance 1915 ml Intake Oral 360 ml IV Total 1555 ml # Voids 4 Laboratory Tests 05/26/18 05:45: White Blood Count 9.4, Red Blood Count 3.93L, Hemoglobin 12.7, Hematocrit 37.3, Mean Corpuscular Volume 95, Mean Corpuscular Hemoglobin 32.3H, Mean Corpuscular Hemoglobin Concent 34.1, Red Cell Distribution Width 11.1L, Platelet Count 262, Mean Platelet Volume 5.9L, Neutrophils (%) (Auto) 82.6H, Lymphocytes (%) (Auto) 12.1L, Monocytes (%) (Auto) 4.4, Eosinophils (%) (Auto) 0.3, Basophils (%) (Auto ) 0.5, Sodium Level 136, Potassium Level 3.7, Chloride Level 102, Carbon Dioxide Level 26, Anion Gap 8, Blood Urea Nitrogen 5L, Creatinine 0.8, Estimat Glomerular Filtration Rate > 60, Glucose Level 97, Calcium Level 8.5, Total Bilirubin 0.7, Aspartate Amino Transf (AST/SGOT) 9L, Alanine Aminotransferase ( ALT/SGPT) 15, Alkaline Phosphatase 43L, Total Protein 7.5, Albumin 3.1L, Globulin 4.4, Albumin/Globulin Ratio 0.7L Height (Feet): 5 Height (Inches): 10.00 Weight (Pounds): 160 General Appearance: mild distress Cardiovascular: normal rate Respiratory/Chest: lungs clear Abdomen: soft, no organomegaly Mike Astorga MD May 26, 2018 14:01
--- NOTE | 2018-05-26 14:07 | NUR ---
NURSE NOTES: Dr. Astorga here spoke seen pt informed Dr. Mercer that pt is in pain. Kevin GI HRIS SPECIALIST made aware gave a written prescription for patient . Dr Mercer gave okay for pt to be sent home passing flatus
--- NOTE | 2018-05-26 14:14 | NUR ---
NURSE NOTES: Pt refused to take medication. States she would like to talk to Kevin. Kevin paged currently here speaking to pt. Pt made awre that Dr. Mercer gave instructions to give sub q injection prior to her discharge. Pt is uncertain of need requested education . Awaiting instructions
--- NOTE | 2018-05-26 14:21 | General Surgery Progress Note ---
General Surgery-Progress Note Subjective Procedure Performed uterine artery embolization Symptoms: improved, tolerating diet, passing flatus Objective Last 24 Hour Vital Signs Date Time Temp Pulse Resp B/P (MAP) Pulse Ox O2 Delivery O2 Flow Rate FiO2 05/26/18 08:12 74 18 Room Air 21 05/26/18 08:12 98 Room Air 21 05/26/18 08:12 Room Air 21 05/26/18 04:00 99.0 75 18 136/78 (97) 100 05/26/18 00:00 99.2 68 18 125/93 (104) 98 05/25/18 22:05 71 18 Room Air 21 05/25/18 22:05 Room Air 21 05/25/18 22:05 97 Room Air 21 05/25/18 21:00 Room Air 05/25/18 20:00 99.4 71 18 131/73 (92) 97 05/25/18 16:00 99.4 69 17 138/84 (102) 99 69 I&O Intake and Output 05/25/18 05/26/18 18:59 06:59 Intake Total 1915 ml Balance 1915 ml Intake Oral 360 ml IV Total 1555 ml # Voids 4 Dressing: dry Wound: clean Drains: none Cardiovascular: RSR Respiratory: clear Abdomen: soft, flat, scaphoid, present bowel sounds Extremities: no edema, no tenderness, no cyanosis Laboratory Tests Test 05/26/18 05:45 White Blood Count 9.4 K/UL (4.8-10.8) Red Blood Count 3.93 M/UL (4.20-5.40) L Hemoglobin 12.7 G/DL (12.0-16.0) Hematocrit 37.3 % (37.0-47.0) Mean Corpuscular Volume 95 FL (80-99) Mean Corpuscular Hemoglobin 32.3 PG (27.0-31.0) H Mean Corpuscular Hemoglobin Concent 34.1 G/DL (32.0-36.0) Red Cell Distribution Width 11.1 % (11.6-14.8) L Platelet Count 262 K/UL (150-450) Mean Platelet Volume 5.9 FL (6.5-10.1) L Neutrophils (%) (Auto) 82.6 % (45.0-75.0) H Lymphocytes (%) (Auto) 12.1 % (20.0-45.0) L Monocytes (%) (Auto) 4.4 % (1.0-10.0) Eosinophils (%) (Auto) 0.3 % (0.0-3.0) Basophils (%) (Auto) 0.5 % (0.0-2.0) Sodium Level 136 MMOL/L (136-145) Potassium Level 3.7 MMOL/L (3.5-5.1) Chloride Level 102 MMOL/L (98-107) Carbon Dioxide Level 26 MMOL/L (21-32) Anion Gap 8 mmol/L (5-15) Blood Urea Nitrogen 5 mg/dL (7-18) L Creatinine 0.8 MG/DL (0.55-1.30) Estimat Glomerular Filtration Rate > 60 mL/min (>60) Glucose Level 97 MG/DL (74-106) Calcium Level 8.5 MG/DL (8.5-10.1) Total Bilirubin 0.7 MG/DL (0.2-1.0) Aspartate Amino Transf (AST/SGOT) 9 U/L (15-37) L Alanine Aminotransferase (ALT/SGPT) 15 U/L (12-78) Alkaline Phosphatase 43 U/L (46-116) L Total Protein 7.5 G/DL (6.4-8.2) Albumin 3.1 G/DL (3.4-5.0) L Globulin 4.4 g/dL Albumin/Globulin Ratio 0.7 (1.0-2.7) L Imaging no GI findings on CT, s/w radiologist Assessment Additional Comments constipation related to narcotics, GI consult appreciated. Plan Additional Comments passing flatus, ok to discharge s/p IM injection for narcotic related constipation. oral movantik. ok to discharge today, F/U next tuesday Godfrey Pedraza MD May 26, 2018 14:21
--- NOTE | 2018-05-26 14:44 | NUR ---
NURSE NOTES: Pt accepted the Senokot and Mylicon. Refused the injection. Kevin aware. will follow up with Ruslan. to inform him of refusal. Pt is okay for discharge per Dr. Pedraza
[2018-05-26] MEDS ORDERED: Relistor 12mg/0.6ml Vial SUBQ SCH (15:00)
[2018-05-26] MEDS ORDERED: MOVANTIK25 MG PO (15:11)
--- NOTE | 2018-05-26 15:41 | NUR ---
NURSE NOTES: Discharge instructions given to patient. Mother at bedside . Provided with patient teaching for signs to report to Dr. Mercer. Dr Mercer made aware that pt stated if medication was not covered, she would not pick it up. Pt encouraged to take medication 2 to cause of pain and constipation. pt is passing gas bowel sounds are present, upon discharge has not had bm. Dr is aware. Pt mother encouraged pt not to take pain medication, as well refusal of Sub q injection. Pt appears to be uncomfortable with facial grimace of pain. Pain medication refused " I will take it when I get home" Pt encouraged to ambulate . Belonging with pt . Pt signed inventory sheet, and discharge packet. Pt breathing room air otherwise stable condition. dr Mercer made aware that pt tempuature was running at 99. No further orders given . Prior to discharge pt spoke to Kevin , Dr Mercer was informed of pt concerns as well . Sub Q relator medication returned to pharmacy
--- NOTE | 2018-05-29 13:04 | Cardiology Report ---
APPROVED REPORT EKG Measurement Heart [id number] Normal sinus rhythm Normal ECG
--- NOTE | 2018-05-29 13:42 | Discharge Summary ---
Discharge Summary Discharge Summary _ DATE OF ADMISSION: 05/24/2018 DATE OF DISCHARGE: 05/26/2018 DISCHARGED BY: Dr. Pedraza REASON FOR ADMISSION: 43 years old female with past medical history of mild asthma, fibroid uterus, status post uterine artery embolization day before , presented with severe pain , nausea, and vomiting. Patient was admitted for control of her symptoms. CONSULTANTS: pulmonary Dr. Astorga GI specialist Dr. Silverman [facility] COURSE: Patient admitted to medical surgical floor. Pulmonology and GI consult were requested. CT scan of the chest, abdomen and pelvis revealed evidence of recent uterine fibroid embolization. No evidence of abscess or perforation. CT of the chest was negative. Patient started on the IV hydration. Pain management was addressed. Ambulation was encouraged. Diet was slowly started as tolerated. Antiemetic provided symptomatically as needed. Respiratory status remained stable. Pulse oximetry was stable on room air. No evidence of respiratory distress. Patient reported constipation. Constipation was likely related to narcotic use. Bowel regimen instituted. Patient received subcutaneous Relistor. Patient was recommended to avoid narcotics and use Tylenol as needed for pain. Prescription for oral Movantik provided. Diet was advanced as tolerated. Ambulation was encouraged. Patient clinically stabilized: pain controlled, tolerated diet, passing flatus. Patient was ready for discharge home. FINAL DIAGNOSES: Leiomyoma of the uterus Status post uterine artery embolization Constipation , related to narcotics Postprocedure severe pain and vomiting- resolved Mild asthma DISCHARGE MEDICATIONS: See Medication Reconciliation list. DISCHARGE INSTRUCTIONS: Patient was discharged home . Follow up with surgeon as outpatient. I have been assigned to dictate discharge summary for this account. I was not involved in the patient's management. Roselia Olguin NP May 29, 2018 13:42
== END 2018-05-26 15:40 | disposition home or self-care (01) | DRG 948 ==
LOC: EDBD 10:48 → EMR 11:05 → EDBEDREQ 11:13 → 3E 11:28 → EDBEDREQ 15:04
DX: G89.18 Other acute postprocedural pain (principal); Z98.890 Other specified postprocedural states; D25.9 Leiomyoma of uterus, unspecified; J45.909 Unspecified asthma, uncomplicated; Z79.3 Long term (current) use of hormonal contraceptives; K59.03 Drug induced constipation; T40.2X5A Adverse effect of other opioids, initial encounter; R11.2 Nausea with vomiting, unspecified
CPT/HCPCS: 36415; 71260; 74177; 80053; 81003; 83690; 84484; 84702; 85025; 93005; 94664; 94760; 96365; 96375; 99285; J2405